=== PATIENT | male | born 1990 | race African-American/Black ===

== ENCOUNTER 2025-02-21 11:37 | Emergency (ER) | payer MEDICAID ==
[~2025-02-21] VITALS: Ht 177.8 cm; Wt 105.0 kg
[2025-02-21 11:54] VITALS: O2SAT 100
[2025-02-21] MEDS: DOXYCYCLINE HYCLATE 100MG CAPSULE PO ONE (14:07)
[2025-02-21] MEDS: CEFTRIAXONE SODIUM 500MG VIAL IM ONE (14:07)
[2025-02-21] MEDS ORDERED: CEPH500C2 MT (14:37)
[2025-02-21 14:46] LABS: CLARITY URINE CLEAR (CLEAR); COLOR URINE YELLOW (YELLOW); GLUCOSE URINE NEGATIVE (NEGATIVE); KETONES URINE TRACE (NEGATIVE); LEUKOCYTE ESTERASE URINE NEGATIVE (NEGATIVE); NITRITE URINE NEGATIVE (NEGATIVE); OCCULT BLOOD URINE NEGATIVE (NEGATIVE); PH URINE 5.5 (4.5-8.0); PROTEIN URINE TRACE (NEGATIVE); SPECIFIC GRAVITY URINE 1.034 (1.005-1.030); UROBILINOGEN URINE 1.0 E.U./dL (0.2-1.0)
[2025-02-21 14:48] VITALS: BP 149/89; PULSE 77; RESP 16; TEMP 36.9; O2SAT 100
[2025-02-21 14:58] LABS: BACTERIA URINE NONE SEEN; RBC URINE 0-2 /hpf (0-2); SQUAMOUS EPITHELIAL CELL URINE RARE /lpf (RARE/1+); WBC URINE 0-2 /hpf (0-2); YEAST URINE NONE SEEN
[2025-02-23 04:08] LABS: HSV TYPE 2 SPECIFIC AB IGG Reactive (Non Reactive)
[2025-02-24 04:07] LABS: CHLAMYDIA TRACHOMATIS NAA Negative (Negative); NEISSERIA GONORRHOEAE NAA Negative (Negative)
== END 2025-02-21 15:08 | disposition home or self-care (01) ==
LOC: ER 11:37
DX: A64 Unspecified sexually transmitted disease (principal); R36.9 Urethral discharge, unspecified; R30.9 Painful micturition, unspecified
CPT/HCPCS: 99283; 86592; 86695; 86696; 87491; 87591; 81003; 36415; 96372; J0696

== ENCOUNTER 2025-04-06 12:01 | Emergency (ER) | payer MEDICAID ==
[~2025-04-06] VITALS: Ht 177.8 cm; Wt 110.0 kg
[~2025-04-06 12:01] MED LIST: CEPH500C2 MT
[2025-04-06 12:11] VITALS: O2SAT 100
[2025-04-06 12:12] VITALS: BP 132/74; PULSE 70; RESP 16; TEMP 36.7; O2SAT 98
[2025-04-06] MEDS ORDERED: TOBR5DRO70 EACHEYE (14:39)
== END 2025-04-06 14:50 | disposition home or self-care (01) ==
LOC: ER 12:01
DX: H10.89 Other conjunctivitis (principal)
CPT/HCPCS: 99283